=== PATIENT | male | born 1975 | race Caucasian/White ===

== ENCOUNTER 2018-07-15 00:14 | Emergency (ER) | payer OTHER ==
[~2018-07-15] VITALS: Ht 172.7 cm; Wt 102.5 kg
[~2018-07-15 00:14] MED LIST: ACETAMINOPHEN-1 EAC1 PO; ASPIR 8181 MG PO; ATORVASTATIN CA40 MG PO; BACTRIM DS TAB1 EACH PO; BENADRYL25 MG PO; CARVEDILOL3.125 MG PO; CLEOCIN HCL150 MG PO; COZAAR 25 MG TA25 MG PO; EFFIENT10 MG PO; MEDROLDOSEPACK PO; NITROGLYCERIN0.4 MG SUBLING; PLAVIX 75 MG TA75 M1 PO; PREDNISONE50 MG PO; PRILOSEC 20 MG20 MG PO; PRILOSEC OTC20 MG PO; SIMVASTATIN10 MG PO; ZPAK
[2018-07-15] MEDS ORDERED: ZANTAC 150MG T150 MG PO (00:27)
[2018-07-15] MEDS ORDERED: ASPIRIN325 PO (00:27)
[2018-07-15] MEDS ORDERED: [UNRECOGNIZED DRUG - OTHER] PO (00:28)
[2018-07-15 01:00] LABS: ABSOLUTE BASOPHILS 0.1 thou/uL (0.0-0.2); ABSOLUTE EOSINOPHILS 0.3 thou/uL (0.0-0.7); ABSOLUTE LYMPHOCYTES 2.5 thou/uL (0.8-5.3); ABSOLUTE MONOCYTES 0.9 thou/uL (0.0-1.2); ABSOLUTE NEUTROPHILS 5.4 thou/uL (1.6-8.1); BASOPHILS 0.7 %; EOSINOPHILS 2.8 %; HEMATOCRIT 41.3 % (42.0-52.0); HEMOGLOBIN 13.9 gm/dL (14.0-18.0); LYMPHOCYTES 27.3 %; MCH 29.7 pg (26.0-34.0); MCHC 33.6 g/dL (28.0-37.0); MCV 88.5 fL (80.0-100.0); MONOCYTES 9.6 %; MPV 8.8 fl. (7.2-11.1); NUCLEATED RBCS 0 /100WBC; PLATELET COUNT* 245 thou/uL (150-400); POLYS 59.6 %; RBC 4.67 mil/uL (4.50-6.00); RDW-CV 13.3 % (10.5-14.5)
[2018-07-15 01:09] LABS: ANION GAP 11 mmol/L (7-16); BUN 14 mg/dL (7-18); CALCIUM 9.4 mg/dL (8.5-10.1); CHLORIDE 102 mmol/L (98-107); CO2 27 mmol/L (21-32); CREATININE 0.9 mg/dL (0.6-1.3); GLUCOSE 119 mg/dL (70-99); POTASSIUM 3.5 mmol/L (3.5-5.1); SODIUM 140 mmol/L (136-145)
[2018-07-15 01:11] LABS: APTT 28.5 Seconds (25.0-31.3); PROTIME 10.5 Seconds (9.20-11.50)
[2018-07-15 01:19] LABS: ALBUMIN 3.9 g/dL (3.4-5.0); ALKALINE PHOSPHATASE 78 U/L (46-116); LIPASE 100 U/L (73-393); NT-PRO BRAIN NAT PEPTIDE 22 pg/mL (<300); SGOT 12 U/L (15-37); SGPT 20 U/L (30-65); TOTAL BILIRUBIN 0.3 mg/dL (<0.1-1.0); TOTAL PROTEIN 7.3 g/dL (6.4-8.2); TROPONIN-I LEVEL <0.06 ng/mL (<0.06)
[2018-07-15] MEDS ORDERED: PENICILLIN VK500 MG PO (03:44)
[2018-07-15 03:45] VITALS: BP 136/79
--- NOTE | 2018-07-15 13:00 | EKG ---
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 : 1975 Requested By: Opal Carlin Order Number: [id number] MD: Clayton May Measurements Intervals [place] Rate: 70 P: 31 ME: 180 QRS: -28 QRSD: 94 T: 33 QT: 395 QTc: 427 Interpretive Statements Sinus rhythm Borderline left axis deviation Abnormal R-wave progression, late transition Compared to ECG 06/19/2017 21:19:25 No significant changes Electronically Signed On 07-15-2018 13:00:25 LOGGING ASSISTANT by Clayton May [email or web address] <ELECTRONICALLY SIGNED> By: Clayton May MD, [facility] 07/15/18 1300 0019 0019 Clayton May MD, [facility] /EPI
== END 2018-07-15 03:45 | disposition home or self-care (01) ==
LOC: M.ERS 00:14
PROVIDERS: Personal Emergency Response Attendant
DX: I20.8 Other forms of angina pectoris (principal); I10 Essential (primary) hypertension; E78.00 Pure hypercholesterolemia, unspecified; Z90.49 Acquired absence of other specified parts of digestive tract; Z95.5 Presence of coronary angioplasty implant and graft

== ENCOUNTER 2018-09-13 23:45 | Emergency (ER) | payer OTHER ==
[~2018-09-13] VITALS: Ht 172.7 cm; Wt 97.5 kg
[~2018-09-13 23:45] MED LIST changes: +ASPIRIN325 PO; +PENICILLIN VK500 MG PO; +ZANTAC 150MG T150 MG PO; +[UNRECOGNIZED DRUG - OTHER] PO
[2018-09-13] MEDS ORDERED: CRESTOR40 MG PO (23:52)
[2018-09-14] MEDS ORDERED: AMOXICILLIN 50500 MG PO (00:08)
[2018-09-14] MEDS ORDERED: ULTRAM 50MG TAB50 MG PO (00:08)
[2018-09-14 00:32] VITALS: BP 162/86
--- NOTE | 2018-09-14 16:23 | EKG ---
[place] [address] ELECTROCARDIOGRAM REPORT Name: TANI MAXWELL Room: [facility]#: [id number] Admission: 09/13/18 Attend Phys: Discharge: 09/14/18 Date of : 75 Report #: [id number] THIS REPORT FOR: //name// [facility] ED Test Date: 2018-09-13 Test Time: 23:51:12 Pat Name: TANI MAXWELL Department: Room: Gender: M [employer] Driver: Jerome RAMIREZ : 1975 Requested By: Vick Gerardo Order Number: [id number] Reading MD: Luis Hartley Measurements Intervals [place] Rate: 58 P: 35 MT: 158 QRS: -5 QRSD: 85 T: 9 QT: 408 QTc: 401 Interpretive Statements Sinus rhythm Compared to ECG 07/15/2018 00:19:48 No significant changes Electronically Signed On 09-14-2018 16:23:31 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
== END 2018-09-14 00:36 | disposition home or self-care (01) ==
LOC: M.ERS 23:45
DX: K02.9 Dental caries, unspecified (principal); I10 Essential (primary) hypertension; E78.00 Pure hypercholesterolemia, unspecified; Z95.5 Presence of coronary angioplasty implant and graft